=== PATIENT | female | born 1960 | race Asian ===

== ENCOUNTER 2019-01-11 00:49 | Emergency (ER) | payer BC ==
[~2019-01-11] VITALS: Ht 165.1 cm; Wt 70.3 kg
[~2019-01-11 00:49] MED LIST: ATORVASTATIN CA10 M1 PO; FENOFIBRATE160 M1 PO; NORVASC2.5 MG PO
[2019-01-11 00:55] VITALS: Ht 165.1 cm; Wt 70.3 kg
[2019-01-11 02:29] VITALS: BP 104/53
== END 2019-01-11 03:21 | disposition home or self-care (01) ==
LOC: ED 00:49
DX: B34.9 Viral infection, unspecified (principal); T46.1X5A Adverse effect of calcium-channel blockers, initial encounter; I10 Essential (primary) hypertension; E78.00 Pure hypercholesterolemia, unspecified; Y92.89 Other specified places as the place of occurrence of the external cause
CPT/HCPCS: 87804